=== PATIENT | female | born 1955 | race Caucasian/White ===

== ENCOUNTER 2018-02-06 00:58 | Outpatient (CLI) | payer OTHER, SELFPAY ==
--- NOTE | 2018-02-06 11:40 | DI.COMBO_ITS ---
SYMPTOM/DIAGNOSIS: SCREENING, Z12.31 MAMMOGRAMS: Mammograms were interpreted according to the usual protocol including computer analysis with CAD system, tomosynthesis and C view imaging. Comparison is made with prior examinations. Breast density, category A. No masses or microcalcifications are seen. There is nothing to suggest malignancy. IMPRESSION: Negative mammogram. Routine screening is recommended. Category 1. MQSA ASSESSMENT OF FINDINGS: Negative. Category 1. Patient will receive a letter notifying them of these results. BI-RAD category A. The breasts are almost entirely fatty.
== END 2018-02-06 01:18 ==
PROVIDERS: PCP Nurse Practitioner Family; Visit Provider Obstetrics & Gynecology Gynecology
DX: Z12.31 Encounter for screening mammogram for malignant neoplasm of breast (principal)
CPT/HCPCS: 77063; 77067

== ENCOUNTER 2024-08-22 10:52 | Day surgery (SDC) | payer OTHER, SELFPAY ==
[2024-08-22 11:14] VITALS: BP 124/67; PULSE 65; RESP 16; TEMP 36.4; O2SAT 98
[2024-08-22] MEDS: Tropicam./Phenyleph. (1/2.5%) 5 ML BTL OD ×3 (11:27→11:38)
--- NOTE | 2024-08-22 11:40 | W.ANESPRE ---
General Info Date of Service Date Performed: 08/22/24 Height: 5 ft 5 in Weight: 63.1 kg Body Mass Index (BMI): 23.1 Surgical Procedure: Operation Date: 08/22/24 13:40 Proposed Procedure Side Surgeon p Cataract Extraction with IOL Implant Right Robby Harrison MD Meds Allergies and Home Medications Allergies Allergy/AdvReac Type Severity Reaction Status Date / Time pravastatin Allergy Intermediate Other (See Verified 08/21/24 12:33 Comment) amoxicillin (From Augmentin) Allergy Unknown Unknown Verified 08/21/24 12:33 clavulanic acid (From Allergy Unknown Unknown Verified 08/21/24 12:33 Augmentin) pollen extracts Allergy Unknown Unknown Verified 08/21/24 12:33 Home Medication ?Medication ?Instructions ?Recorded esomeprazole magnesium 40 mg 40 mg PO BID 06/11/13 capsule,delayed release (Nexium) levothyroxine 112 mcg tablet 112 mcg PO DAILY 06/11/13 (Synthroid) lisinopril 5 mg tablet 5 mg PO DAILY 06/11/13 dapagliflozin propanediol 10 mg 10 mg PO DAILY 08/07/24 tablet (Farxiga) fexofenadine 180 mg tablet 180 mg PO DAILY 08/07/24 (Dione Allergy) metoprolol succinate 100 mg 100 mg PO DAILY 08/07/24 capsule sprinkle, ext. release 24 hr (Kapspargo Sprinkle) rosuvastatin 10 mg tablet 10 mg PO DAILY 08/07/24 sertraline 50 mg tablet 75 mg PO DAILY 08/07/24 tirzepatide 7.5 mg/0.5 mL 7.5 mg subcut QWEEK 08/07/24 subcutaneous pen injector (Mounjaro) valacyclovir 500 mg tablet 500 mg PO BID 08/07/24 Current Visit Medications: Current Medications Generic Name Dose Route Start Last Admin Trade Name Freq PRN Reason Stop Dose Admin Acetaminophen 1,000 mg 08/22/24 06:00 Acetaminophen 500 Mg Tab PO 09/21/24 05:59 Q4H PRN PRN Balanced Salt Solution 500 ml 08/22/24 06:00 Balanced Salt Soln.-Plus 500 Ml Bag OP 09/21/24 05:59 DIRECTED URIAH Miscellaneous Medication 0 ml 08/22/24 06:00 Prednisolone 1%, Moxifloxacin 0.5%, Bromfenac 0.09% 5.6ml Btl OD 09/21/24 05:59 DIRECTED URIAH Miscellaneous Medication 0 ml 08/22/24 06:00 08/22/24 11:38 Tropicam./Phenyleph. (1/2.5%) 5 Ml Btl OD 09/21/24 05:59 1 drp DIRECTED URIAH Administration Tetracaine HCl 0 ml 08/22/24 06:00 Tetracaine 0.5% 4 Ml Btl OD 09/21/24 05:59 DIRECTED URIAH PFSH Active Problems Active Problems: Problem Status Onset Code Posterior subcapsular age-related cataract, right eye Acute H25.041 Nuclear age-related cataract, right eye Acute H25.11 Medical History Medical History Malignant hyperthermia Question Immediate Family history but no on has been tested Vertigo Sinusitis Osteopenia Hx methicillin resistant staph Melanocytic nevi of face Keratosis, inflamed seborrheic Hypothyroid Hyperlipidemia Herpes simplex Heart murmur Follicular cyst of skin and subcutaneous tissue Essential tremor Diabetes CMC (carpometacarpal) synovitis Chronic GERD Cataract Tobacco Smoking/Tobacco Use Status: Never Alcohol Alcohol Intake: current Alcohol intake frequency: holidays/special occasions only Substance Use Substance use: Never Substance use type: does not use Prental History History 5 Para Hx # Term Pregnancies 3 Multiple births Hx # Pregnancies Ectopic pregnancies AB induced Hx Number of Living Children AB spontaneous Vital Signs and Lab Results Vital Signs Most Recent Vital Signs in EMR: Most Recent Vital Signs Temp Pulse Resp BP Pulse Ox 36.4 C L 65 16 124/67 98 08/22/24 11:14 08/22/24 11:14 08/22/24 11:14 08/22/24 11:14 08/22/24 11:14 Point of Care Results Point of Care Results: Finger Stick Blood Glucose 101 08/22/24 11:21 Lab Results Blood Type / Crossmatch: No Data to Display Complete Blood Count: No Data to Display Complete Metabolic Panel: No Data to Display Liver Function Panel: No Data to Display Coagulation Panel: No Data to Display Cardiac Panel: No Data to Display Arterial Blood Gas: No Data to Display Venous Blood Gas: No Data to Display Pancreas Panel: No Data to Display Thyroid Panel: No Data to Display Infectious Disease: No Data to Display Blood Cultures: No Data to Display Toxicology Panel: No Data to Display Anesthesia Assessment and Plan Anesthesia History Personal History: No History of Anesthesia Complications Family History: Malignant Hyperthermia Exercise Tolerance Exercise Tolerance: Metabolic Equivalents>4 Pertinent Negatives Pertinent Negatives: No Symptoms of GERD Cardiac & Pulmonary Exam Cardiac Exam: Normal S1/S2 Heart Sounds Pulmonary Exam: Clear Bilateral Breath Sounds Implantable Cardiac Device Does patient have a Pacemaker or an ICD?: No Airway Exam Known Difficult Airway: No Mallampati Class: 1 Mouth Opening: Normal (> 3cm) Thyromental Distance: Less than 3 cm Neck Range of Motion: Full ROM Neck Circumference: Normal Teeth Condition: Normal Dentition ASA Classification ASA Score: ASA 2 Emergency Case?: No NPO Status NPO Status: NPO Clears >2 hours, Solids >8 hours Anesthesia Plan Resuscitation Status: Full Code Anesthesia Technique: MAC Anesthesia Airway Planned: Natural Airway Monitors Used: Standard Monitors
[2024-08-22 11:57] VITALS: BMI 23.1
[2024-08-22] MEDS: Povidone-Iodine Ophth 30 ML BTL (12:40)
[2024-08-22] MEDS: Tetracaine 0.5% 4 ML BTL OD (12:40)
[2024-08-22] MEDS: Duovisc Viscoelastic System EACH 1 EACH (12:45)
[2024-08-22] MEDS: Phenylephrine/Lidocaine (15/10) MG/ML 1 ML VIAL (12:46)
[2024-08-22] MEDS: Lidocaine 1% Pres-Free 5 ML VIAL (12:46)
[2024-08-22] MEDS: Balanced Salt Soln.-PLUS 500 ML BAG OP (12:47)
[2024-08-22] MEDS: Moxifloxacin-PF 1 MG/ML VIAL (12:56)
[2024-08-22] MEDS: Prednisolone 1%, Moxifloxacin 0.5%, Bromfenac 0.09% 5.6ML BTL OD (12:57)
[2024-08-22 13:04] VITALS: BP 113/75; PULSE 66; RESP 16; TEMP 36.2; O2SAT 94
--- NOTE | 2024-08-22 13:06 | W.PM.DSUDISC ---
Date of service: 08/22/24 Discharge Plan Disposition Patient Disposition: Home Discharge Details Attending Provider: Robby Harrison Primary Care Provider: Destiny Gardner Home Meds and New Rx's Prescriptions: No Action esomeprazole magnesium [Nexium] 40 MG capsule,delayed release(DR/EC) 40 mg PO BID lisinopril 5 MG tablet 5 mg PO DAILY levothyroxine [Synthroid] 112 MCG tablet 112 mcg PO DAILY Patient Comments: now taking 88mcg DM dapagliflozin propanediol [Farxiga] 10 mg tablet 10 mg PO DAILY fexofenadine [Dione Allergy] 180 mg tablet 180 mg PO DAILY Kapspargo Sprinkle 100 mg capsule,sprinkle,ER 24hr 100 mg PO DAILY Mounjaro 7.5 mg/0.5 mL pen injector 7.5 mg subcut QWEEK rosuvastatin 10 mg tablet 10 mg PO DAILY sertraline 50 mg tablet 75 mg PO DAILY valacyclovir 500 mg tablet 500 mg PO BID Discharge Instructions Stand Alone Forms: DSU Post-Op CataractRand (DSU) Discharge Orders Discharge Orders: Discharge Order (Routine); Ordered 08/22/24 Ordered By: Robby Harrison DS: Diagnosis Discharge Diagnosis (1) Posterior subcapsular age-related cataract, right eye: Status: Resolved (2) Nuclear age-related cataract, right eye: Status: Resolved
--- NOTE | 2024-08-22 13:07 | ROE_ITS ---
Operative Note Operative Note PRE-OP DIAGNOSIS: Nuclear/posterior subcapsular cataract, right eye POST-OP DIAGNOSIS: same PROCEDURE: Cataract extraction using phacoemulsification with intraocular lens implant, right eye SURGEON: Robby Harrison ANESTHESIA TYPE: Local By Surgeon and MAC Refer to Anesthesia Record ESTIMATED BLOOD LOSS: 0 PATHOLOGY: none sent COMPLICATIONS: None Patient was transported to: same day Patient's condition: stable Implants: Tan Clareon [id number] Indications: Progressive decreased vision due to cataract, right eye Procedure Description: CATARACT SURGERY OPERATIVE REPORT PREOPERATIVE DIAGNOSIS: Nuclear/posterior subcapsular cataract, right eye POSTOPERATIVE DIAGNOSIS: Same OPERATION: Cataract extraction using phacoemulsification with posterior chamber intraocular lens implant, right eye. IOL: IOL Certified Surgical Technician/Model: Tan Clareon [id number] IOL Power: + 16.0 diopters IOL Serial Number: [id number] Optic Diameter: 6.0mm Haptic/Overall Diameter: 13.0mm PHACO INFO: Tan Hyasynth Biourion Vision System with OZil and Active Fluidics Cumulative Dispersed Energy (CDE): 6.42 seconds SURGEON: Robby Harrison MD, MAYUR ANESTHESIA: Monitored Anesthesia Care (MAC), with local sub-tenon's anesthetic infiltration COMPLICATIONS: None SPECIMENS: None INDICATIONS FOR PROCEDURE: The patient is a 69-year-old lady with history of diminished visual acuity in her right eye secondary to the development of nuclear/cortical cataract. She is significantly symptomatic that she desires cataract surgery in attempt to improve and maximize her vision. See office notes for detailed information. PROCEDURE: The correct surgical eye was identified and marked as the right eye and the pupil was dilated in the preoperative area using mydriatics and cycloplegics. The dilated pupil size was 7.0 mm. Oral sedation was administered in the form of an Imprimis MKO Melt (midazolam 3mg/ketamine 25mg/ondansetron 2mg). The patient was brought to the operating room where cardiopulmonary monitoring was instituted and surgical time-out was performed, confirming the correct operative eye and IOL power. Topical anesthesia was administered and ophthalmic povidone-iodine 5% was instilled into the conjunctival fornices. The chago-ocular area was prepped with Betadine 10% solution and draped in the usual sterile fashion for intraocular surgery, including an aperture drape. A Tegaderm transparent film dressing was cut in half and used to cover the lashes and lid margins. Care was taken to sequester the lashes and lid margins under the Tegaderm dressing. A lid speculum was placed between the lids of the operative eye and the Tan LuxOR Revalia operating microscope was maneuvered into position. Radhika scissors were then used to make a conjunctival buttonhole approximately 6mm posterior to the limbus in the inferonasal quadrant. Blunt dissection was carried out to expose bare sclera, and a blunt-tipped sub-tenon?s anesthesia cannula was introduced and passed posteriorly along the globe where non- preserved plain lidocaine was injected into posterior sub-Tenon?s space. A sideport knife was used to make a paracentesis port. Intraocular phenylephrine/lidocaine was injected into the anterior chamber. The anterior chamber was then filled with viscoelastic. A keratome knife was used to construct a two--plane clear corneal tunnel extending 2.0mm into clear cornea. A flap was raised on the anterior capsule and capsulorhexis forceps were used to complete a continuous curvilinear capsulorhexis of 5.5 mm. Balanced salt solution was then used to perform cortical cleaving hydrodissection and nuclear hydrodelineation until the lens could be freely rotated within the capsular bag. The lens nucleus was then disassembled and removed within the capsular bag and iris plane using phacoemulsification. Residual cortical material was removed using the I/A handpiece. The posterior capsule was carefully polished to remove as much residual lens epithelial cells as safely possible. The capsular bag was then inflated and the anterior chamber deepened with cohesive viscoelastic. The lens implant described above was inserted into the capsular bag using the Tan Autonome Injector. A Kuglen hook was used to dial the IOL into position. Residual viscoelastic was then removed first from posterior to the IOL, then from the anterior chamber using the I/A handpiece. The lens implant was noted to center nicely within the capsular bag. The incisions were stromally hydrated, and the anterior chamber was reformed using BSS. Then 0.5cc of moxifloxacin 1.0mg/ml were injected into the capsular bag and anterior chamber. The incisions were checked with a Weck spear and found to be secure. Several drops of ophthalmic povidone-iodine 5% were then applied to the eye followed by two drops of combination steroid/NSAID/antibiotic solution. The drapes were removed and a clear plastic protective eye shield was placed over the eye. The patient was then returned to Same Day Surgery in stable condition. Date of Procedure: 08/22/24
--- NOTE | 2024-08-22 13:16 | W.ANESPOSTOP ---
Postoperative Evaluation Date, Time and Location Date Performed: 08/22/24 Time Performed: 13:16 Patient Location: Day Surgery Unit Vital Signs Most Recent Imported Vital Signs: Most Recent Vital Signs Temp Pulse Resp BP Pulse Ox 36.2 C L 66 16 113/75 94 08/22/24 13:04 08/22/24 13:04 08/22/24 13:04 08/22/24 13:04 08/22/24 13:04 Pain Score Most Recent Pain Score: Most Recent Pain Score Pain Level 0 08/22/24 13:04 Assessment Mental Status: Awake (Alert & Oriented to Patient Baseline) Airway and Respiratory Function: Patent airway with normal (patient baseline) respiratory exam Cardiovascular Function: Hemodynamically Stable Hydration Status: Adequately Hydrated Nausea & Vomiting: No Nausea or Vomiting Pain: Pt. Denies Any Pain Peripheral Nerve Block: Patient did not receive a nerve block
[2024-08-22 13:34] VITALS: BP 115/64; PULSE 68; RESP 16; TEMP 36.2; O2SAT 95
== END 2024-08-22 13:38 | disposition home or self-care (01) ==
LOC: SUR 10:53
PROVIDERS: PCP Physician Assistant Medical; Visit Provider Ophthalmology
PROC: (CPT 66984; principal; 2024-08-22 13:30)
DX: H25.041 Posterior subcapsular polar age-related cataract, right eye (principal); H25.11 Age-related nuclear cataract, right eye
CPT/HCPCS: 66984; 00123; V2632; J2003

== ENCOUNTER 2024-08-29 11:07 | Day surgery (SDC) | payer OTHER, SELFPAY ==
[2024-08-29] MEDS: Tropicam./Phenyleph. (1/2.5%) 5 ML BTL OS ×3 (11:22→11:38)
[2024-08-29 11:25] VITALS: BP 100/63; PULSE 62; RESP 14; TEMP 36.1; O2SAT 97
--- NOTE | 2024-08-29 11:39 | W.ANESPRE ---
General Info Date of Service Date Performed: 08/29/24 Height: 5 ft 5 in Weight: 62.7 kg Body Mass Index (BMI): 23.0 Surgical Procedure: Operation Date: 08/29/24 13:40 Proposed Procedure Side Surgeon p Cataract Extraction with IOL Implant Left Robby Harrison MD Pre-Op Diagnosis Post-Op Diagnosis LEFT CATARACT LEFT CATARACT Meds Allergies and Home Medications Allergies Allergy/AdvReac Type Severity Reaction Status Date / Time pravastatin Allergy Intermediate Other (See Verified 08/29/24 11:23 Comment) amoxicillin (From Augmentin) Allergy Unknown Unknown Verified 08/29/24 11:23 clavulanic acid (From Allergy Unknown Unknown Verified 08/29/24 11:23 Augmentin) pollen extracts Allergy Unknown Unknown Verified 08/29/24 11:23 Home Medication ?Medication ?Instructions ?Recorded esomeprazole magnesium 40 mg 40 mg PO BID 06/11/13 capsule,delayed release (Nexium) levothyroxine 112 mcg tablet 112 mcg PO DAILY 06/11/13 (Synthroid) lisinopril 5 mg tablet 5 mg PO DAILY 06/11/13 dapagliflozin propanediol 10 mg 10 mg PO DAILY 08/07/24 tablet (Farxiga) fexofenadine 180 mg tablet 180 mg PO DAILY 08/07/24 (Dione Allergy) metoprolol succinate 100 mg 100 mg PO DAILY 08/07/24 capsule sprinkle, ext. release 24 hr (Kapspargo Sprinkle) rosuvastatin 10 mg tablet 10 mg PO DAILY 08/07/24 sertraline 50 mg tablet 75 mg PO DAILY 08/07/24 tirzepatide 7.5 mg/0.5 mL 7.5 mg subcut QWEEK 08/07/24 subcutaneous pen injector (Mounjaro) valacyclovir 500 mg tablet 500 mg PO BID 08/07/24 Current Visit Medications: Current Medications Generic Name Dose Route Start Last Admin Trade Name Freq PRN Reason Stop Dose Admin Acetaminophen 1,000 mg 08/29/24 06:00 Acetaminophen 500 Mg Tab PO 09/28/24 05:59 Q4H PRN PRN Balanced Salt Solution 500 ml 08/29/24 06:00 Balanced Salt Soln.-Plus 500 Ml Bag OP 09/28/24 05:59 DIRECTED URIAH Miscellaneous Medication 0 ml 08/29/24 06:00 Prednisolone 1%, Moxifloxacin 0.5%, Bromfenac 0.09% 5.6ml Btl OS 09/28/24 05:59 DIRECTED URIAH Miscellaneous Medication 0 ml 08/29/24 06:00 08/29/24 11:38 Tropicam./Phenyleph. (1/2.5%) 5 Ml Btl OS 09/28/24 05:59 1 drp DIRECTED URIAH Administration Tetracaine HCl 0 ml 08/29/24 06:00 Tetracaine 0.5% 4 Ml Btl OS 09/28/24 05:59 DIRECTED URIAH PFSH Active Problems Active Problems: Problem Status Onset Code Posterior subcapsular age-related cataract of left eye Acute H25.042 Nuclear age-related cataract, left eye Acute H25.12 Posterior subcapsular age-related cataract, right eye Resolved H25.041 Nuclear age-related cataract, right eye Resolved H25.11 Medical History Medical History Malignant hyperthermia Question Immediate Family history but no on has been tested Vertigo Sinusitis Osteopenia Hx methicillin resistant staph Melanocytic nevi of face Keratosis, inflamed seborrheic Hypothyroid Hyperlipidemia Herpes simplex Heart murmur Follicular cyst of skin and subcutaneous tissue Essential tremor Diabetes CMC (carpometacarpal) synovitis Chronic GERD Cataract Tobacco Smoking/Tobacco Use Status: Never Passive smoking exposure: No Alcohol Alcohol Intake: current Alcohol intake frequency: holidays/special occasions only Substance Use Substance use: Never Substance use type: does not use Prental History History 5 Para Hx # Term Pregnancies 3 Multiple births Hx # Pregnancies Ectopic pregnancies AB induced Hx Number of Living Children AB spontaneous Vital Signs and Lab Results Vital Signs Most Recent Vital Signs in EMR: Most Recent Vital Signs Temp Pulse Resp BP Pulse Ox 36.1 C L 62 14 100/63 97 08/29/24 11:25 08/29/24 11:25 08/29/24 11:25 08/29/24 11:25 08/29/24 11:25 Point of Care Results Point of Care Results: Finger Stick Blood Glucose 96 08/29/24 11:20 Lab Results Blood Type / Crossmatch: No Data to Display Complete Blood Count: No Data to Display Complete Metabolic Panel: No Data to Display Liver Function Panel: No Data to Display Coagulation Panel: No Data to Display Cardiac Panel: No Data to Display Arterial Blood Gas: No Data to Display Venous Blood Gas: No Data to Display Pancreas Panel: No Data to Display Thyroid Panel: No Data to Display Infectious Disease: No Data to Display Blood Cultures: No Data to Display Toxicology Panel: No Data to Display Anesthesia Assessment and Plan Anesthesia History Personal History: No History of Anesthesia Complications Family History: Malignant Hyperthermia Exercise Tolerance Exercise Tolerance: Metabolic Equivalents>4 Pertinent Negatives Pertinent Negatives: No Major Cardiovascular Symptoms or Complaints and No Major Pulmonary Symptoms or Complaints Cardiac & Pulmonary Exam Cardiac Exam: Normal S1/S2 Heart Sounds Pulmonary Exam: Clear Bilateral Breath Sounds Implantable Cardiac Device Does patient have a Pacemaker or an ICD?: No Airway Exam Known Difficult Airway: No Mallampati Class: 1 Mouth Opening: Normal (> 3cm) Thyromental Distance: Less than 3 cm Neck Range of Motion: Full ROM Neck Circumference: Normal Teeth Condition: Normal Dentition ASA Classification ASA Score: ASA 2 Emergency Case?: No NPO Status NPO Status: NPO Clears >2 hours, Solids >8 hours Anesthesia Plan Resuscitation Status: Full Code Anesthesia Technique: MAC Anesthesia Airway Planned: Natural Airway Monitors Used: Standard Monitors
[2024-08-29 11:45] VITALS: BMI 23.0
[2024-08-29] MEDS: Tetracaine 0.5% 4 ML BTL OS (11:56)
[2024-08-29] MEDS: Balanced Salt Soln.-PLUS 500 ML BAG OP (12:05)
[2024-08-29] MEDS: Povidone-Iodine Ophth 30 ML BTL (12:05)
[2024-08-29] MEDS: Phenylephrine/Lidocaine (15/10) MG/ML 1 ML VIAL (12:06)
[2024-08-29] MEDS: Lidocaine 1% Pres-Free 5 ML VIAL (12:06)
[2024-08-29] MEDS: Duovisc Viscoelastic System EACH 1 EACH (12:07)
[2024-08-29] MEDS: Moxifloxacin-PF 1 MG/ML VIAL (12:19)
[2024-08-29] MEDS: Prednisolone 1%, Moxifloxacin 0.5%, Bromfenac 0.09% 5.6ML BTL OS (12:20)
[2024-08-29 12:29] VITALS: BP 116/64; PULSE 64; RESP 16; TEMP 36.3; O2SAT 96
--- NOTE | 2024-08-29 12:29 | W.PM.DSUDISC ---
Date of service: 08/29/24 Discharge Plan Disposition Patient Disposition: Home Discharge Details Attending Provider: Robby Harrison Primary Care Provider: Unknown,Unknown Home Meds and New Rx's Prescriptions: No Action esomeprazole magnesium [Nexium] 40 MG capsule,delayed release(DR/EC) 40 mg PO BID lisinopril 5 MG tablet 5 mg PO DAILY levothyroxine [Synthroid] 112 MCG tablet 112 mcg PO DAILY Patient Comments: now taking 88mcg DM dapagliflozin propanediol [Farxiga] 10 mg tablet 10 mg PO DAILY fexofenadine [Dione Allergy] 180 mg tablet 180 mg PO DAILY Kapspargo Sprinkle 100 mg capsule,sprinkle,ER 24hr 100 mg PO DAILY Mounjaro 7.5 mg/0.5 mL pen injector 7.5 mg subcut QWEEK rosuvastatin 10 mg tablet 10 mg PO DAILY sertraline 50 mg tablet 75 mg PO DAILY valacyclovir 500 mg tablet 500 mg PO BID Discharge Instructions Stand Alone Forms: D[facility] Post-Op CataractRand (DSU) Discharge Orders Discharge Orders: Discharge Order (Routine); Ordered 08/29/24 Ordered By: Robby Harrison DS: Diagnosis Discharge Diagnosis (1) Posterior subcapsular age-related cataract of left eye: Status: Resolved (2) Nuclear age-related cataract, left eye: Status: Resolved
--- NOTE | 2024-08-29 12:30 | W.PM.OP ---
Operative Note Operative Note PRE-OP DIAGNOSIS: Nuclear/posterior subcapsular cataract, left eye POST-OP DIAGNOSIS: same PROCEDURE: Cataract extraction using phacoemulsification with intraocular lens implant, left eye SURGEON: Robby Harrison ANESTHESIA TYPE: Local By Surgeon and MAC Refer to Anesthesia Record PATHOLOGY: none sent COMPLICATIONS: None Patient was transported to: same day Patient's condition: stable Implants: Tan [place]on [id number] Indications: Progressive decreased vision due to cataract, left eye Procedure Description: CATARACT SURGERY OPERATIVE REPORT PREOPERATIVE DIAGNOSIS: Nuclear/posterior subcapsular cataract, left eye POSTOPERATIVE DIAGNOSIS: Same OPERATION: Cataract extraction using phacoemulsification with posterior chamber intraocular lens implant, left eye. IOL: IOL Acquisition Marketing Manager/Model: Tan Clareon [id number] IOL Power: + 17.5 diopters IOL Serial Number: [id number] Optic Diameter: 6.0mm Haptic/Overall Diameter: 13.0mm PHACO INFO: Tan Centurion Vision System with OZil and Active Fluidics Cumulative Dispersed Energy (CDE): 4.25 seconds SURGEON: Robby Harrison MD, MAYUR ANESTHESIA: Monitored Anesthesia Care (MAC), with local sub-tenon's anesthetic infiltration COMPLICATIONS: None SPECIMENS: None INDICATIONS FOR PROCEDURE: The patient is a 69-year-old lady with history of diminished visual acuity in both eyes secondary to the development of bilateral nuclear/posterior subcapsular cataract. She is significantly symptomatic that she desires cataract surgery in attempt to improve and maximize her vision. She has already undergone cataract surgery in the right eye and is doing well postoperatively. She now presents for cataract surgery in the left eye. See office notes for detailed information. PROCEDURE: The correct surgical eye was identified and marked as the left eye and the pupil was dilated in the preoperative area using mydriatics and cycloplegics. The dilated pupil size was 7.0 mm. The patient was brought to the operating room where cardiopulmonary monitoring was instituted and surgical time-out was performed, confirming the correct operative eye and IOL power. Intravenous sedation was given, in the form of Versed 2.0 mg IV Topical anesthesia was administered and ophthalmic povidone-iodine 5% was instilled into the conjunctival fornices. The chago-ocular area was prepped with Betadine 10% solution and draped in the usual sterile fashion for intraocular surgery, including an aperture drape. A Tegaderm transparent film dressing was cut in half and used to cover the lashes and lid margins. Care was taken to sequester the lashes and lid margins under the Tegaderm dressing. A lid speculum was placed between the lids of the operative eye and the Tan LuxOR Revalia operating microscope was maneuvered into position. Radhika scissors were then used to make a conjunctival buttonhole approximately 6mm posterior to the limbus in the inferonasal quadrant. Blunt dissection was carried out to expose bare sclera, and a blunt-tipped sub-tenon?s anesthesia cannula was introduced and passed posteriorly along the globe where non-preserved plain lidocaine was injected into posterior sub-Tenon?s space. A sideport knife was used to make a paracentesis port. Intraocular phenylephrine/lidocaine was injected into the anterior chamber. The anterior chamber was then filled with viscoelastic. A keratome knife was used construct a two-plane clear corneal tunnel extending 2.0mm into clear cornea. A flap was raised on the anterior capsule and capsulorhexis forceps were used to complete a continuous curvilinear capsulorhexis of 5.5 mm. Balanced salt solution was then used to perform cortical cleaving hydrodissection and nuclear hydrodelineation until the lens could be freely rotated within the capsular bag. The lens nucleus was then disassembled and removed within the capsular bag and iris plane using phacoemulsification. Residual cortical material was removed using the irrigation/aspiration handpiece. The posterior capsule was carefully polished to remove as much residual lens epithelial cells as safely possible. The capsular bag was then inflated and the anterior chamber deepened with viscoelastic. The lens implant described above was inserted into the capsular bag using the Tan Autonome Injector. A Kuglen hook was used to dial the IOL into position. Residual viscoelastic was then removed first from posterior to the IOL, then from the anterior chamber using the I/A handpiece. The lens implant was noted to center nicely within the capsular bag. The incisions were stromally hydrated, and the anterior chamber was reformed using BSS. Then 0.5cc of moxifloxacin 1.0mg/ml were injected into the capsular bag and anterior chamber. The incisions were checked with a Weck spear and found to be secure. Several drops of ophthalmic povidone-iodine 5% were then applied to the eye followed by two drops of combination steroid/NSAID/antibiotic solution. The drapes were removed and a clear plastic protective eye shield was placed over the eye. The patient was then returned to Same Day Surgery in stable condition. Date of Procedure: 08/29/24
--- NOTE | 2024-08-29 12:47 | W.ANESPOSTOP ---
Postoperative Evaluation Date, Time and Location Date Performed: 08/29/24 Time Performed: 12:47 Patient Location: Day Surgery Unit Vital Signs Most Recent Imported Vital Signs: Most Recent Vital Signs Temp Pulse Resp BP Pulse Ox 36.3 C L 64 16 116/64 96 08/29/24 12:29 08/29/24 12:29 08/29/24 12:29 08/29/24 12:29 08/29/24 12:29 Pain Score Most Recent Pain Score: Most Recent Pain Score Pain Level 0 08/29/24 12:29 Assessment Mental Status: Awake (Alert & Oriented to Patient Baseline) Airway and Respiratory Function: Patent airway with normal (patient baseline) respiratory exam Cardiovascular Function: Hemodynamically Stable Hydration Status: Adequately Hydrated Nausea & Vomiting: No Nausea or Vomiting Pain: Pt. Denies Any Pain Peripheral Nerve Block: Patient did not receive a nerve block
[2024-08-29 12:50] VITALS: BP 109/76; PULSE 63; RESP 14; TEMP 36.5; O2SAT 94
== END 2024-08-29 13:06 | disposition home or self-care (01) ==
LOC: SUR 11:07
PROVIDERS: Visit Provider Ophthalmology
PROC: (CPT 66984; principal; 2024-08-29 13:30)
DX: H25.042 Posterior subcapsular polar age-related cataract, left eye (principal); H25.12 Age-related nuclear cataract, left eye; Z98.41 Cataract extraction status, right eye
CPT/HCPCS: 66984; 00123; V2632; J2003; J2250